=== PATIENT | female | born 1960 | race Caucasian/White ===

== ENCOUNTER 2022-02-20 13:30 | Outpatient (CLI) | payer MEDICAID, SELFPAY ==
--- NOTE | 2022-02-20 14:00 | CRLHL7_ITS ---
For Patients: As a result of the Century Cures Act, medical imaging exams and procedure reports are released immediately into your electronic medical record. You may view this report before your referring provider. If you have questions, please contact your health care provider. BILATERAL SCREENING MAMMOGRAM WITH COMPUTER-AIDED DETECTION AND TOMOSYNTHESIS TECHNIQUE: CC and MLO views were obtained. These mammographic images have been obtained using full-field digital technique. These mammographic images were interpreted with the benefit of computer-aided detection. Breast Tomosynthesis was used in this interpretation. COMPARISON FILM: 02/15/19, 05/11/11. FINDINGS: There are scattered areas of fibroglandular density IMPRESSION: There is no radiographic evidence for malignancy. ASSESSMENT: BI-RADS Category 1: Negative RECOMMENDATION: Routine screening mammogram in 1 year. A lay language report of this examination will be provided to the patient. Humphrey Martin M.D. Diagnostic Radiologist [email or web address] SHANNEN/Dictated by: Humphrey Martin MD @ 02/23/2022 8:58:00 AM (Electronically Signed)
== END 2022-02-20 13:31 | disposition home or self-care (01) ==
LOC: MAMMO 13:33
PROVIDERS: PCP Physician Assistant Medical; Visit Provider Physician Assistant Medical
DX: Z12.31 Encounter for screening mammogram for malignant neoplasm of breast (principal)
CPT/HCPCS: 77063; 77067

== ENCOUNTER 2022-03-13 13:29 | Outpatient (CLI) | payer MEDICAID, SELFPAY ==
[2022-03-13 22:12] LABS: Albumin* 4.3 g/dL (3.3-5.0); Chloride* 103 mmol/L (96-114)
[2022-03-13 22:13] LABS: Potassium* 4.4 mmol/L (3.6-5.1); Sodium* 140 mmol/L (135-149)
[2022-03-13 22:15] LABS: Alkaline Phosphatase* 98 U/L (40-150); Aspartate Amino Transferase* 24 U/L (12-35); Bilirubin Total* 0.5 mg/dL (0.1-1.5); Blood Urea Nitrogen* 12 mg/dL (7-30); Carbon Dioxide* 28 mmol/L (20-32); Creatinine* 0.8 mg/dL (0.5-1.5); Estimated Glomerular Filt Rate 83 ml/min; Total Protein* 7.3 g/dL (6.0-8.3)
[2022-03-13 22:16] LABS: Alanine Aminotransferase* 19 U/L (4-35); Calcium* 9.5 mg/dL (8.4-10.6); Glucose* 138 mg/dL (60-115)
[2022-03-13 22:46] LABS: TSH With Reflex to FT4* 0.949 uIU/mL (0.270-4.200)
== END 2022-03-13 13:30 | disposition home or self-care (01) ==
PROVIDERS: PCP Physician Assistant Medical; Visit Provider Physician Assistant Medical
DX: E03.9 Hypothyroidism, unspecified (principal); E11.9 Type 2 diabetes mellitus without complications
CPT/HCPCS: 80053; 84443

== ENCOUNTER 2022-05-18 14:29 | Outpatient (CLI) | payer MEDICAID, SELFPAY ==
[2022-05-18 22:40] LABS: Cholesterol* 282 mg/dL (90-199); HDL Cholesterol* 53 mg/dL (>=50); LDL Cholesterol Calculated 195 mg/dL (<100); Triglycerides* 172 mg/dL (40-149)
== END 2022-05-18 14:30 | disposition home or self-care (01) ==
PROVIDERS: PCP Physician Assistant Medical; Visit Provider Physician Assistant Medical
DX: E78.5 Hyperlipidemia, unspecified (principal)
CPT/HCPCS: 80061

== ENCOUNTER 2022-11-23 06:58 | Outpatient (CLI) | payer MEDICAID, SELFPAY ==
--- NOTE | 2022-11-23 08:23 | W.ANESCHARGE ---
Anesthesia Charges Start Date/Time Anesthesia Start Date: 11/23/22 Anesthesia Start Time: 08:00 Stop Date/Time Anesthesia Stop Date: 11/23/22 Anesthesia Stop Time: 08:52
--- NOTE | 2022-11-23 08:54 | W.ANESCHARGE ---
Anesthesia Charges Start Date/Time Anesthesia Start Date: 11/23/22 Anesthesia Start Time: 08:00 Stop Date/Time Anesthesia Stop Date: 11/23/22 Anesthesia Stop Time: 08:52
== END 2022-11-23 06:59 | disposition home or self-care (01) ==
LOC: OP CLINIC 06:59
PROVIDERS: PCP Physician Assistant Medical; Visit Provider Surgery
DX: Z12.11 Encounter for screening for malignant neoplasm of colon (principal); K62.1 Rectal polyp; Z86.010 Personal history of colon polyps
CPT/HCPCS: 45385; 811; 88305; 88341; 88342; J2250; J2704; J3010

== ENCOUNTER 2023-08-02 09:23 | Outpatient (CLI) | payer MEDICAID, SELFPAY | END 2023-08-02 09:24 | disposition home or self-care (01) | PROVIDERS: PCP Physician Assistant Medical; Visit Provider Physician Assistant Medical | DX: E03.9 Hypothyroidism, unspecified (principal); E11.9 Type 2 diabetes mellitus without complications; E78.2 Mixed hyperlipidemia | CPT/HCPCS: 80053; 80061; 84439; 84443 ==

== ENCOUNTER 2023-12-28 10:15 | Outpatient (CLI) | payer MEDICAID, SELFPAY | END 2023-12-28 10:16 | disposition home or self-care (01) | LOC: NFLDREF 01-01 20:09 | PROVIDERS: PCP Physician Assistant Medical; Referring Provider Physician Assistant Medical; Visit Provider Physician Assistant Medical | DX: E03.9 Hypothyroidism, unspecified (principal) | CPT/HCPCS: 84439; 84443 ==

== ENCOUNTER 2024-08-09 11:07 | Outpatient (CLI) | payer MEDICAID, SELFPAY | END 2024-08-09 11:08 | disposition home or self-care (01) | LOC: NFLDREF 08-16 01:47 | PROVIDERS: PCP Physician Assistant Medical; Referring Provider Physician Assistant Medical; Visit Provider Physician Assistant Medical | DX: Z00.01 Encounter for general adult medical examination with abnormal findings (principal); M81.0 Age-related osteoporosis without current pathological fracture; R41.3 Other amnesia; E55.9 Vitamin D deficiency, unspecified; E11.9 Type 2 diabetes mellitus without complications; E03.9 Hypothyroidism, unspecified; E78.2 Mixed hyperlipidemia | CPT/HCPCS: 80053; 80061; 82043; 82306; 82570; 82607; 84443 ==

== ENCOUNTER 2024-12-29 10:03 | Outpatient (CLI) | payer OTHER, SELFPAY | END 2024-12-29 10:04 | disposition home or self-care (01) | LOC: NFLDREF 01-01 08:37 | PROVIDERS: PCP Physician Assistant Medical; Referring Provider Physician Assistant Medical; Visit Provider Physician Assistant Medical | DX: E03.9 Hypothyroidism, unspecified (principal); E11.9 Type 2 diabetes mellitus without complications | CPT/HCPCS: 84439; 84443 ==

== ENCOUNTER 2025-04-02 11:56 | Outpatient (CLI) | payer OTHER, SELFPAY | END 2025-04-02 11:57 | disposition home or self-care (01) | LOC: NFLDREF 04-08 00:58 | PROVIDERS: PCP Physician Assistant Medical; Referring Provider Physician Assistant Medical; Visit Provider Physician Assistant Medical | DX: E03.9 Hypothyroidism, unspecified (principal) | CPT/HCPCS: 84443 ==